=== PATIENT | female | born 1990 | race Caucasian/White ===

== ENCOUNTER → 2016-12-25 | Outpatient (CLI) | payer MEDICAID ==
[~2016-12-25] MED LIST: AMOX500C PO; CYTO200T PO; FE FCAP PO; IBUP-232 PO; NITR1CAP36 PO; PREN1CAP33 PO
== END ==
LOC: HPND 10:38
PROVIDERS: ATTEND Obstetrics & Gynecology
DX: O26.841 Uterine size-date discrepancy, first trimester (principal); Z3A.12 12 weeks gestation of pregnancy
CPT/HCPCS: 76801

== ENCOUNTER → 2017-02-12 | Outpatient (CLI) | payer MEDICAID ==
[~2017-02-12] MED LIST changes: -AMOX500C PO; -CYTO200T PO; -IBUP-232 PO
== END ==
LOC: HPND 11:01
PROVIDERS: ATTEND Obstetrics & Gynecology
DX: Z36 Encounter for antenatal screening of mother (principal); Z3A.19 19 weeks gestation of pregnancy
CPT/HCPCS: 76805

== ENCOUNTER → 2017-03-20 | Outpatient (CLI) | payer MEDICAID | LOC: HPND 09:21 | PROVIDERS: ATTEND Obstetrics & Gynecology | DX: O35.1XX0 Maternal care for (suspected) chromosomal abnormality in fetus, not applicable or unspecified (principal) | CPT/HCPCS: 76811 ==

== ENCOUNTER 2017-06-15 10:12 | Emergency (ER) | payer MEDICAID ==
[~2017-06-15 10:12] MED LIST changes: -FE FCAP PO; +FERRTAB2 PO; -NITR1CAP36 PO
--- NOTE | 2017-06-15 10:52 | PD ---
HPI Chief Complaint Possibly leaking fluid and breech presentation Date Seen: Jun 15, 2017 Time Seen: 10:40 Travel History International Travel<30 Days: No Contact w/Intl Traveler<30Days: No Known Affected Area: No History of Present Illness HPI Patient is 27-year-old white female at 37 weeks followed by [facility] who presents referral from that clinic. She was checked this morning and noted to be breech and that she might be leaking fluid. Denies bleeding or pain patient feels fine baby is active she has no complaints or problems. The heart rate tracing is reactive and she is having occasional contraction that she does not feel well. Patient's amnio sure is negative today Weeks Gestation: 37 Para: 0 : 2 Miscarriage: 1 History Obstetric History Obstetric History One miscarriage last year Social History Alcohol Use: No Tobacco Use: No Substance Abuse: No Allergies-Medications (Allergen,Severity, Reaction): Coded Allergies: No Known Allergies (Verified , 05/21/17) Home Meds Active Scripts Multi-Vit/Iron-Folic [id number] C (Ferralet) 90-1-0.012-120 mg Tab, 1 TAB PO DAILY, #30 BOTTLE 11 Refills Prov:Maura Ardon 04/16/17 Vit W/ Fe Polysacch C (Vitafol Fe+ 90-1-200 & 50 mg) 1 Cap Cap, 1 TAB PO DAILY, #30 BOTTLE 11 Refills Prov:Maura Ardon 12/25/16 Review of Systems General / Constitutional: No: Fever, Weight Gain, Chills, Other Eyes: No: Diploplia, Blurred Vision, Visual changes, Pain, Photophobia HENT: No: Headaches, Vertigo, Lightheadedness Cardiovascular: No: Irregular Rhythm, Chest Pain or Discomfort, Palpitations, Tachycardia, Syncope, Varicosities, Edema, Cyanosis Respiratory: No: Cough, Short of Breath, Other Gastrointestinal: No: Nausea, Vomiting, Diarrhea Genitourinary: No: Decreased Urinary Output, Oliguria Musculoskeletal: No: Limited ROM, Weakness, Cramping, Edema, Pain Skin: No Rash, No Itching, No Dryness, No Lumps, No Change in Pigmentation, No Change in Nails, No Alopecia, No Lesions Neurologic: No: Weakness, Dizziness, Syncope, Focal Abnormalities, Coordination Problem, Headache, Slurred Speech, Seizures Psychiatric: No: Depression, Suicidal Ideations, Homicidal Ideation Endocrine: No: Heat Intolerance, Cold Intolerance, Polydipsia, Polyuria, Other Physical Exam Narrative GENERAL: Well-nourished, well-developed patient. SKIN: Warm and dry. HEAD: Normocephalic and atraumatic. EYES: No scleral icterus. No injection or drainage. ENT: No nasal drainage noted. Mucous membranes pink. Airway patent. NECK: Supple, trachea midline. No JVD. CARDIOVASCULAR: Regular rate and rhythm without murmurs, gallops, or rubs. RESPIRATORY: Breath sounds equal bilaterally. No accessory muscle use. BREASTS: Bilateral exam showed no masses , no retractions, no nipple discharge. ABDOMEN/GI: Abdomen soft, non-tender, bowel sounds present, no rebound, no guarding Gravid to [-37] weeks size Fundal Height: [37-] GENITOURINARY: External Genitalia: intact and normal in appearance BUS glands: [-] Cervix: Post-] Dilatation: [2-] Effacement: [-60] Station: [-3] Presentation: [Complete breech confirmed by ultrasound-] Membranes: [intact b] Uterine Contractions: [Occasional] FHT's: Category: [-1] Baseline: [-133] Reactive: [yes-] Variability: [-mod] Decels: [none-] EXTREMITIES: No cyanosis or edema. BACK: Nontender without obvious deformity. No CVA tenderness. NEUROLOGICAL: Awake and alert. Motor and sensory grossly within normal limits. Five out of 5 muscle strength in all muscle groups. Normal speech. Data Data Orders Orders Vital Signs (Adult) .ON ADMISSION (06/15/17 10:22) ^ Labor Status (06/15/17 10:22) ^ Non Stress Test (06/15/17 10:22) ^ Hydration (06/15/17 10:22) Pamg-1 Test .ONCE (06/15/17 10:22) Ob (2e) Additional Admit Info (06/15/17 10:30) Labs Bedside ultrasound confirms complete breech presentation anatomy scan borderline low fluid normal cardiac activity Amnio sure negative MDM Interpretation(s) 27-year-old white female A1 who is referred over from [facility] for evaluation of possible leakage of fluid and breech presentation. Amnio sure is negative today. Patient is to complete breech presentation with the cervical exam of 2 cm / 60% -3 /breech Patient is not in labor at this time a she's having a few contractions the heart rate tracing is reactive and she is intact membranes. Land schedule patient for section for breech presentation on June 28 which we 39 weeks prior to that if she goes to the labor and still breech that she may well need a at that time Plan Plan to place this patient was scheduled for a primary section on June 28 for breech presentation Diagnosis Diagnosis: Primary Impression: Breech presentation Additional Impression: No leakage of amniotic fluid into vagina Disposition: 01 DISCHARGE HOME Condition: Stable Júnior Kenney II, MD Jun 15, 2017 10:52
[2017-06-18] MEDS ORDERED: AMOX500C PO (16:05)
== END 2017-06-15 11:32 | disposition home or self-care (01) ==
LOC: HOBED 10:12
DX: O32.1XX0 Maternal care for breech presentation, not applicable or unspecified (principal); Z3A.37 37 weeks gestation of pregnancy
CPT/HCPCS: 59025; 76815

== ENCOUNTER → 2017-06-19 | Outpatient (CLI) | payer MEDICAID ==
[~2017-06-19] MED LIST changes: +AMOX500C PO; +FERR325C PO; +IBUP-232 PO; +OXYC1TAB63 PO; +SENN1TAB PO
== END ==
LOC: HPND 14:46
PROVIDERS: ATTEND Obstetrics & Gynecology
DX: O32.1XX0 Maternal care for breech presentation, not applicable or unspecified (principal); O41.03X0 Oligohydramnios, third trimester, not applicable or unspecified; Z3A.37 37 weeks gestation of pregnancy
CPT/HCPCS: 76816

== ENCOUNTER 2017-06-27 11:09 | Inpatient (IN) | payer MEDICAID ==
[2017-06-27] VITALS (11 sets, daily range): BP systolic 98–123; BP diastolic 56–80; PULSE 71–101; RESP 16–25; TEMP 98.1–99.4; O2SAT 99–100
[~2017-06-27] VITALS: Ht 165.1 cm; Wt 30.5 kg
[~2017-06-27 11:09] MED LIST changes: -FERR325C PO; -IBUP-232 PO; -OXYC1TAB63 PO; -SENN1TAB PO
[2017-06-27] MEDS ORDERED: PROPOFOL 200 MG/20 ML AMP IV ONE (12:00)
[2017-06-27] MEDS ORDERED: ONDANSETRON HCL 4 MG/2 ML VIAL IV PUSH ONE (12:00)
[2017-06-27] MEDS ORDERED: MORPHINE SULFATE PF 5 MG/10 ML VIAL ONE (12:00)
[2017-06-27] MEDS ORDERED: LACTATED RINGER'S 1000 ML INJ 2,000 ML IV ONE (12:00)
[2017-06-27] MEDS ORDERED: OXYTOCIN 10 UNIT/ML AMP IV ONE (12:00)
[2017-06-27] MEDS ORDERED: PHENYLEPH/NS 1000 MCG/10 ML SYR IV ONE (12:00)
--- NOTE | 2017-06-27 12:05 | PD ---
HPI Chief Complaint contractions Date Seen: Jun 27, 2017 Time Seen: 12:07 (Erich Dailey MD, R2) Travel History International Travel<30 Days: No Contact w/Intl Traveler<30Days: No (Erich Dailey MD, R2) History of Present Illness HPI Patient is a 27-year-old female at 38/6 weeks who presents for contractions. She states that she started having contractions earlier this morning and they were spaced about 10 minutes apart, painful. States they have increased in frequency up to 3-4 minutes. Denies any loss of fluids, vaginal bleeding. Endorses movement. She states she's had low fluid in the past during this and baby is in breech position, with scheduled tomorrow morning. Otherwise, denies any complaints/concerns. No headaches, changes in vision, dysuria, leg pain/swelling. She sees [facility]. Weeks Gestation: 38 Para: 0 : 2 Miscarriage: 1 (Erich Dailey MD, R2) History Past Medical History Medical History: Denies Significant Hx (Erich Dailey MD, R2) Obstetric History Obstetric History 1st -miscarriage (Erich Dailey MD, R2) Past Surgical History Surgical History: No Previous Surgery (Erich Dailey MD, R2) Family History Family History: Negative (Erich Dailey MD, R2) Social History Alcohol Use: No Tobacco Use: No Substance Abuse: No (Erich Dailey MD, R2) Allergies-Medications (Allergen,Severity, Reaction): Coded Allergies: No Known Allergies (Verified , 06/22/17) Home Meds Active Scripts Amoxicillin (Amoxicillin) 500 Mg Cap, 500 MG PO TID for Infection, #21 CAP 0 Refills Prov:Maura Ardon 06/18/17 Multi-Vit/Iron-Folic Alrx-E41-Sah C (Ferralet) 90-1-0.012-120 mg Tab, 1 TAB PO DAILY, #30 BOTTLE 11 Refills Prov:Maura Ardon 04/16/17 Vit W/ Fe Polysacch C (Vitafol Fe+ 90-1-200 & 50 mg) 1 Cap Cap, 1 TAB PO DAILY, #30 BOTTLE 11 Refills Prov:Maura ArdonRonan DUARTE 12/25/16 Review of Systems General / Constitutional: Weight Gain, No: Fever, Weight Loss, Chills Eyes: No: Diploplia, Blurred Vision, Visual changes HENT: No: Headaches, Lightheadedness Cardiovascular: No: Irregular Rhythm, Chest Pain or Discomfort, Palpitations Respiratory: No: Cough, Short of Breath Gastrointestinal: No: Nausea, Vomiting, Diarrhea Genitourinary: Pelvic Pain, No: Urgency, Frequency, Dysuria, Discharge, Vaginal Bleeding Musculoskeletal: No: Limited ROM, Weakness Skin: No Rash, No Itching, No Dryness, No Lumps Neurologic: No: Weakness, Dizziness, Syncope Psychiatric: No: Anxiety, Depression (Erich Dailey MD, R2) Physical Exam Narrative GENERAL: Well-nourished, well-developed patient. SKIN: Warm and dry. HEAD: Normocephalic and atraumatic. EYES: No scleral icterus. No injection or drainage. ENT: No nasal drainage noted. Mucous membranes pink. Airway patent. NECK: Supple, trachea midline. No JVD. CARDIOVASCULAR: Regular rate and rhythm without murmurs, gallops, or rubs. RESPIRATORY: Breath sounds equal bilaterally. No accessory muscle use. ABDOMEN/GI: Abdomen soft, non-tender, bowel sounds present, no rebound, no guarding Gravid to 38 weeks size GENITOURINARY: External Genitalia: intact and normal in appearance Cervix: [-] Dilatation: [-] Effacement: [-] Station: [-] Presentation: [-] Membranes: [intact or ruptured] Uterine Contractions: none FHT's: Category: 1 Baseline: 140 Reactive: yes Variability: moderate Decels: none EXTREMITIES: No cyanosis or edema. BACK: Nontender without obvious deformity. No CVA tenderness. NEUROLOGICAL: Awake and alert. Motor and sensory grossly within normal limits. Five out of 5 muscle strength in all muscle groups. Normal speech. (Erich Dailey MD, R2) Narrative SVE: 90/0 (prior exam 2cm last week) foot palpated on exam per RN (Clementine Richard MD) Data Data Vital Signs Reviewed: Yes Orders Orders Vital Signs (Adult) .ON ADMISSION (06/27/17 12:04) ^ Labor Status (06/27/17 12:04) ^ Hydration (06/27/17 12:04) Group B Strep: Positive (Erich Dailey MD, R2) MDM Medical Record Reviewed: Yes Interpretation(s) 27 y/o at 38/6 weeks presents for contractions. Category 1 FHT with no contractions Vitals stable IUP at 38 weeks with breech presentation Pt scheduled for tomorrow due to breech Cervical check -Hydration, may be dehydrated -FHT to monitor for contractions (Erich Dailey MD, R2) Attending Attestation 38w6d Footling breech presentation Irregular UC, now in early labor with cervical change Proceed with primary for malpresentation (Clementine Richard MD) Diagnosis Diagnosis: Primary Impression: Breech presentation Qualified Codes: O32.1XX0 - Maternal care for breech presentation, not applicable or unspecified Erich Dailey MD, R2 Jun 27, 2017 12:05 Clementine Richard MD Jun 27, 2017 13:31
[2017-06-27] MEDS ORDERED: LACTATED RINGER'S 1000 ML INJ 1,000 ML IV SCH ×2 (12:46→13:51)
[2017-06-27] MEDS ORDERED: LACTATED RINGER'S 1000 ML INJ 1,000 ML IV ONE (13:21)
[2017-06-27 13:52] LABS: AUTOMATED NEUTROPHIL # 14.6 TH/MM3 (1.8-7.7); BASOPHIL # 0.1 TH/MM3 (0-0.2); BASOPHIL % 0.4 % (0.0-2.0); EOSINOPHIL % 0.2 % (0.0-4.0); HEMATOCRIT 27.4 % (35.0-46.0); HEMO FLAGS DIFF FINAL; LYMPH % 9.1 % (9.0-44.0); LYMPHOCYTE # 1.6 TH/MM3 (1.0-4.8); MEAN CELL VOLUME 69.1 FL (80.0-100.0); MEAN CORPUSCULAR HEMOGLOBIN 20.9 PG (27.0-34.0); MEAN CORPUSCULAR HGB CONC 30.3 % (32.0-36.0); MONO % 6.3 % (0.0-8.0); PLATELET COUNT 263 TH/MM3 (150-450); RED BLOOD COUNT 3.96 MIL/MM3 (4.00-5.30); RED CELL DISTRIBUTION WIDTH 18.8 % (11.6-17.2); WHITE BLOOD COUNT 17.3 TH/MM3 (4.0-11.0)
[2017-06-27 13:59] LABS: BLOOD, URINE SMALL (NEG); GLUCOSE,URINE NEG (NEG); GRANULAR CAST, URINE 1 /lpf; KETONE, URINE 80 mg/dL (NEG); MUCUS URINE FEW /lpf (OCC); NITRITE,URINE NEG (NEG); SQUAMOUS EPITHELIAL CELL URINE 3 /hpf (0-5); TRANSITIONAL EPI CELLS, URINE <1 /hpf; URINE COLOR YELLOW (YELLW/STRAW)
[2017-06-27 14:00] LABS: COMMENT (UR) CULT NOT INDICATED; CULTURE IF INDICATED CULT NOT INDICATED
[2017-06-27] MEDS ORDERED: EPIDURAL-NO SYSTEMIC NARCOTICS PRN (14:10)
[2017-06-27] MEDS ORDERED: EPIDURAL-DIPHENHYDRAMINE HCL 50 MG/ML VIAL IV PUSH PRN (14:10)
[2017-06-27] MEDS ORDERED: EPIDURAL-DO NOT ADMINISTER ANTICOAGULANTS PRN (14:10)
[2017-06-27] MEDS ORDERED: EPIDURAL-DIPHENHYDRAMINE HCL 50 MG CAP PO PRN (14:10)
[2017-06-27] MEDS ORDERED: EPIDURAL-NALOXONE HCL 0.4 MG/ML AMP IV PUSH PRN (14:10)
[2017-06-27] MEDS ORDERED: OXYTOCIN 30 UNITS-500ML PREMIX 500 ML IV ONE (15:00)
[2017-06-27] MEDS ORDERED: CITRIC ACID-SODIUM CITRATE LIQ 30 ML UDC PO SCH (15:00)
--- NOTE | 2017-06-27 15:01 | PD.OP ---
Operative Report Date of Surgery: Jun 27, 2017 Preoperative Diagnosis: 38 weeks Footling breech Active labor Postoperative Diagnosis: Same as above Procedure: LTUI Surgeon: Clementine Richard Skein Yarn Dyer(s): [employer] Operation and Findings: OPERATIVE REPORT PROCEDURE(S) PERFORMED: Primaruy Low Transverse Uterine Incision SURGEON: Clementine Richard MD PHARMACIST IN CHARGE OWNER(S): [employer] ANESTHESIA: Spinal SPECIMEN(S) TO LAB: Cord blood EBL: 500mL UOP: 200ml clear IVF: 1200ml Crystalloid DRAINS: Nunez DRESSINGS: Mepilex dressing COMPLICATIONS: None apparent INDICATIONS: 38w6d weeks with footling breech presentation in active labor. OPERATIVE FINDINGS: Normal uterus, ovaries, tubes. Viable male, 3300g, 9/9 DESCRIPTION: The risks, benefits, and indications of the procedure were reviewed with the patient and informed consent was obtained. The patient was taken to the operating room where spinal anesthesia was found to be adequate. She was prepared and draped in the normal sterile fashion in the dorsal supine position with a leftward tilt. A Pfannenstiel skin incision was made on the skin. The incision was then carried through the underlying layer of fascia with the Bovie. The fascia was incised in the midline and the incision extended laterally with the Ling scissors. The superior aspect of the fascial incision was grasped with the Barbara clamps, elevated, and the underlying rectus muscles dissected off bluntly and using the Bovie. In a similar fashion the inferior aspect of this incision was grasped and the rectus muscles dissected off of the fascia. The rectus muscles were in the midline and the peritoneum entered bluntly over a filmy area. The bladder blade was placed and a bladder flap made with the Metzenbaum scissors. A bladder flap created digitally with replacement of the bladder blade. The lower uterine segment was incised in a transverse fashion with the scalpel. The uterine incision was extended laterally digitally. Clear fluid was noted on amniotomy. The infants feet were grasped and brought through the incision. The breech and body were delivered and wraped in a towel. The shoulders were delivered without difficulty followed by the head. The cord was double clamped and cut. The was handed to the waiting pediatric team. Cord blood was obtained. The placenta was then removed manually, was intact and grossly normal. The uterus was exteriorized and cleared of all clots and debris. The uterine incision was closed with a running, locking layer of 0- Chromic. The uterus was returned to the abdomen, and inspected again and found to be hemostatic. The gutters were irrigated and cleared of all clots and debris. The peritoneal fascia and muscle bellies were hemostatic. The fascia was re- approximated from the left to the right corner in a running fashion with 0- Vicryl. The subcutaneous space was irrigated and hemostatic. The subcutaneous space was closed with 3-0 Vicryl. The skin approximated with 3-0 Monocryl. The patient tolerated the procedure well. Sponge, lap and needle counts were correct x 2. Ancef IVPB was given prior to the procedure. Pitocin 30 units in her regular IV fluids was given after placenta delivery. The patient was taken to the recovery unit in good condition. There were no operative complications. Clementine Richard MD Department of Obstetrics and Gynecology Clementine Richard MD Jun 27, 2017 3:01 pm
--- NOTE | 2017-06-27 15:01 | HHI.HP ---
History & Physical H&P Patient Name: Augusta Freeman Unit Number: [id number] Date of : 1990 Patient Status: Admitted Inpatient Attending Doctor: Clementine Richard MD HPI HPI Chief Complaint contractions Date Seen: Jun 27, 2017 Time Seen: 12:07 (Erich Dailey MD, R2) Travel History International Travel<30 Days: No Contact w/Intl Traveler<30Days: No (Erich Dailey MD, R2) History of Present Illness HPI Patient is a 27-year-old female at 38/6 weeks who presents for contractions. She states that she started having contractions earlier this morning and they were spaced about 10 minutes apart, painful. States they have increased in frequency up to 3-4 minutes. Denies any loss of fluids, vaginal bleeding. Endorses movement. She states she's had low fluid in the past during this and baby is in breech position, with scheduled tomorrow morning. Otherwise, denies any complaints/concerns. No headaches, changes in vision, dysuria, leg pain/swelling. She sees [facility] care. Weeks Gestation: 38 Para: 0 : 2 Miscarriage: 1 (Erich Dailey MD, R2) History (Limited) History Past Medical History Medical History: Denies Significant Hx (Erich Dailey MD, R2) Obstetric History Obstetric History 1st -miscarriage (Erich Dailey MD, R2) Past Surgical History Surgical History: No Previous Surgery (Erich Dailey MD, R2) Family History Family History: Negative (Erich Dailey MD, R2) Social History Alcohol Use: No Tobacco Use: No Substance Abuse: No (Erich Dailey MD, R2) Allergies-Medications Allergies-Medications (Allergen,Severity, Reaction): Coded Allergies: No Known Allergies (Verified , 06/22/17) Home Meds Active Scripts Amoxicillin (Amoxicillin) 500 Mg Cap, 500 MG PO TID for Infection, #21 CAP 0 Refills Prov:Maura Ardon 06/18/17 Multi-Vit/Iron-Folic Msre-T95-Uoy C (Ferralet) 90-1-0.012-120 mg Tab, 1 TAB PO DAILY, #30 BOTTLE 11 Refills Prov:Maura Ardon [facility] 04/16/17 Vit W/ Fe Polysacch C (Vitafol Fe+ 90-1-200 & 50 mg) 1 Cap Cap, 1 TAB PO DAILY, #30 BOTTLE 11 Refills Prov:Maura Ardon CLINICAL PROGRAM CONSULTANT 12/25/16 ROS Review of Systems General / Constitutional: Weight Gain, No: Fever, Weight Loss, Chills Eyes: No: Diploplia, Blurred Vision, Visual changes HENT: No: Headaches, Lightheadedness Cardiovascular: No: Irregular Rhythm, Chest Pain or Discomfort, Palpitations Respiratory: No: Cough, Short of Breath Gastrointestinal: No: Nausea, Vomiting, Diarrhea Genitourinary: Pelvic Pain, No: Urgency, Frequency, Dysuria, Discharge, Vaginal Bleeding Musculoskeletal: No: Limited ROM, Weakness Skin: No Rash, No Itching, No Dryness, No Lumps Neurologic: No: Weakness, Dizziness, Syncope Psychiatric: No: Anxiety, Depression (Erich Dailey MD, R2) Physical Exam Physical Exam Narrative GENERAL: Well-nourished, well-developed patient. SKIN: Warm and dry. HEAD: Normocephalic and atraumatic. EYES: No scleral icterus. No injection or drainage. ENT: No nasal drainage noted. Mucous membranes pink. Airway patent. NECK: Supple, trachea midline. No JVD. CARDIOVASCULAR: Regular rate and rhythm without murmurs, gallops, or rubs. RESPIRATORY: Breath sounds equal bilaterally. No accessory muscle use. ABDOMEN/GI: Abdomen soft, non-tender, bowel sounds present, no rebound, no guarding Gravid to 38 weeks size Uterine Contractions: irregular, occasional FHT's: Category: 1 Baseline: 140 Reactive: yes Variability: moderate Decels: none EXTREMITIES: No cyanosis or edema. BACK: Nontender without obvious deformity. No CVA tenderness. NEUROLOGICAL: Awake and alert. Motor and sensory grossly within normal limits. Five out of 5 muscle strength in all muscle groups. Normal speech. (Erich Dailey MD, R2) Narrative SVE: / (prior exam 2cm last week) foot palpated on exam per RN (Clementine Richard MD) Group B Strep: Positive (Erich Dailey MD, R2) MDM MDM Medical Record Reviewed: Yes Interpretation(s) 27 y/o at 38/6 weeks presents for contractions. Category 1 FHT Vitals stable (Erich Dailey MD, R2) Attending Attestation 38w6d Footling breech presentation Irregular UC, now in early labor with cervical change Proceed with primary for malpresentation (Clementine Richard MD) Diagnosis Diagnosis: Primary Impression: Breech presentation Qualified Codes: O32.1XX0 - Maternal care for breech presentation, not applicable or unspecified Clementine Richard MD Jun 27, 2017 15:01
[2017-06-27] MEDS ORDERED: OXYTOCIN 30 UNITS-500ML PREMIX 500 ML ONE (15:26)
[2017-06-27] MEDS ORDERED: KETOROLAC TROMETHAMINE 30 MG/ML (IVP) VIAL ONE (15:26)
[2017-06-27] MEDS ORDERED: ONDANSETRON HCL 4 MG/2 ML VIAL IV PUSH PRN (16:00)
[2017-06-27] MEDS: KETOROLAC TROMETHAMINE 30 MG/ML (IVP) VIAL IV PUSH SCH (18:00)
[2017-06-27] MEDS: LACTATED RINGER'S 1000 ML INJ 1,000 ML IV SCH (21:00)
[2017-06-27] MEDS: SODIUM CHLORIDE 0.9% FLUSH 10 ML FLUSH IV FLUSH SCH (21:00)
[2017-06-28] VITALS (9 sets, daily range): BP systolic 101–115; BP diastolic 57–72; PULSE 65–88; RESP 16–18; TEMP 97.5–99.4
[2017-06-28] MEDS: SODIUM CHLORIDE 0.9% FLUSH 10 ML FLUSH IV FLUSH PRN ×2 (00:09→05:37)
[2017-06-28] MEDS: KETOROLAC TROMETHAMINE 30 MG/ML (IVP) VIAL IV PUSH SCH ×4 (00:09→18:10)
[2017-06-28] MEDS ORDERED: OXYTOCIN 30 UNITS-500ML PREMIX 500 ML IV PRN (01:00)
[2017-06-28] MEDS: LACTATED RINGER'S 1000 ML INJ 1,000 ML IV SCH (05:57)
--- NOTE | 2017-06-28 09:00 | HHI.OB ---
Subjective Post Operative Day: 1 Remarks Postoperative day number 1. AFVSS overnight. Pain controlled with medications. Incision not draining. Decreased lochia. Denies dysuria. No breast tenderness. She is feeding the baby via breast. Appetite good. No nausea or vomiting. Endorses flatus. No bowel movement. Ambulating well. Denies calf pain, shortness of breath, or cough. Otherwise, she is doing well this morning and has no other complaints. (Erich Dailey MD, R2) Objective Vitals/I&O Vital Signs Date Time Temp Pulse Resp B/P (MAP) Pulse Ox O2 Delivery O2 Flow Rate FiO2 06/28/17 05:36 98.6 77 18 115/66 (82) 06/28/17 04:00 16 06/28/17 01:10 99.4 18 06/28/17 01:10 65 102/57 (72) 06/27/17 23:30 16 06/27/17 21:00 123/72 (89) 06/27/17 21:00 99.4 78 18 06/27/17 16:20 98.3 78 16 119/70 (86) 06/27/17 15:45 75 20 103/60 (74) 100 06/27/17 15:45 98.1 06/27/17 15:29 76 20 98/56 (70) 100 06/27/17 15:16 71 22 107/59 (75) 99 06/27/17 15:04 101 25 119/80 (93) 99 06/27/17 15:01 98.1 06/27/17 13:44 84 108/61 (77) 06/27/17 13:35 86 100 06/27/17 13:30 85 100 (Erich Dailey MD, R2) Result Diagram: 06/27/17 1240 Objective Remarks GENERAL: Well-nourished, well-developed patient. CARDIOVASCULAR: Regular rate and rhythm without murmurs, gallops, or rubs. RESPIRATORY: Breath sounds equal bilaterally. No accessory muscle use. ABDOMEN/GI: Abdomen soft, non-tender, bowel sounds present. Incision: Clean, dry and intact. Fundus: Firm, non-tender at umbilicus. GENITOURINARY: Light to moderate bleeding. EXTREMITIES: No cyanosis or edema, non-tender, without signs of DVT. Medications and IVs Current Medications Medications (Trade) Dose Ordered Sig/Filippo Route Start Time Stop Time Status Last Admin Lactated Ringer's 1,000 ml @ 100 mls/hr Q10H IV 06/27/17 19:57 06/28/17 15:56 06/27/17 21:00 Oxytocin 500 ml @ 100 mls/hr UNSCH X1 PRN IV 06/28/17 01:00 06/29/17 00:59 (NS Flush) 2 ml BID IV FLUSH 06/27/17 21:00 (NS Flush) 2 ml UNSCH PRN IV FLUSH 06/27/17 15:00 06/28/17 05:37 (Mylicon Chew) 80 mg QID PRN PO 06/27/17 18:00 (Motrin) 600 mg Q6H PRN PO 06/28/17 21:00 (Percocet 5-325 Mg) 1 tab Q4H PRN PO 06/27/17 15:00 (Percocet 5-325 Mg) 2 tab Q4H PRN PO 06/27/17 15:00 (Miri-Colace) 2 tab Q12HR PRN PO 06/27/17 21:00 (M-M-R Ii Inj) 0.5 ml ONCE ONCE SQ 06/28/17 16:00 06/28/17 16:01 (Boostrix Inj) 0.5 ml ONCE ONCE IM 06/28/17 16:00 06/28/17 16:01 (Zofran Inj) 4 mg Q6H PRN IV PUSH 06/27/17 16:00 (Toradol Inj) 30 mg Q6HR IV PUSH 06/27/17 18:00 07/01/17 17:59 06/28/17 05:36 Miscellaneous Information NO SYSTEMIC NARCOTICS TO BE GIVEN FO... UNSCH PRN .XX 06/27/17 14:10 06/28/17 14:09 (Narcan Inj) 0.4 mg UNSCH PRN IV PUSH 06/27/17 14:10 06/28/17 14:09 (Benadryl Inj) 25 mg Q6H PRN IV PUSH 06/27/17 14:10 06/28/17 14:09 (Benadryl) 50 mg Q6H PRN PO 06/27/17 14:10 06/28/17 14:09 06/28/17 00:08 Miscellaneous Information ALL NURSING DEPARTMENTS UNSCH PRN .XX 06/27/17 14:10 06/28/17 14:09 (Erich Dailey MD, R2) Assessment/Plan Assessment and Plan 27y/o female who is POD# 1 s/p CXN due to breech presentation -Continue routine care. -Percocet and Motrin PRN pain. -Encouraged OOB. Advised pelvic rest for 6 wks. Will need a f/u appt. in 1 wk for incision check. -Re: ctrl, she would is undecided -D/c in 1-2 more days. dw OB attending (Erich Dailey MD, R2) Attending Attestation POD #1 s/p c/s doing well voiding trial this am BF well patient seen and examined. d/w Dr. Dailey and Dr. Weeks (Clementine Richard MD) Erich Dailey MD, R2 Jun 28, 2017 09:00 Clementine Richard MD Jun 28, 2017 09:19
[2017-06-28 10:11] LABS: AUTOMATED NEUTROPHIL # 12.4 TH/MM3 (1.8-7.7); BASOPHIL # 0.1 TH/MM3 (0-0.2); BASOPHIL % 0.3 % (0.0-2.0); EOSINOPHIL # 0.1 TH/MM3 (0-0.4); EOSINOPHIL % 0.3 % (0.0-4.0); LYMPH % 9.5 % (9.0-44.0); LYMPHOCYTE # 1.5 TH/MM3 (1.0-4.8); MEAN CELL VOLUME 68.7 FL (80.0-100.0); MEAN CORPUSCULAR HEMOGLOBIN 21.4 PG (27.0-34.0); MEAN CORPUSCULAR HGB CONC 31.1 % (32.0-36.0); MONO % 9.7 % (0.0-8.0); NEUT % 80.2 % (16.0-70.0); PLATELET COUNT 194 TH/MM3 (150-450); RED BLOOD COUNT 3.13 MIL/MM3 (4.00-5.30); RED CELL DISTRIBUTION WIDTH 18.9 % (11.6-17.2); WHITE BLOOD COUNT 15.5 TH/MM3 (4.0-11.0)
[2017-06-28 10:18] LABS: HEMO FLAGS DIFF FINAL
[2017-06-28 10:19] LABS: HEMATOCRIT 21.5 % (35.0-46.0)
[2017-06-28] MEDS ORDERED: SODIUM CHLOR 0.9% 250 ML INJ 250 ML IV ONE (11:00)
[2017-06-28] MEDS: oxyCODONE/ACETAMINOPHEN 5 MG/325 MG TAB PO PRN ×4 (12:15→18:10)
[2017-06-28] MEDS: SIMETHICONE 80 MG CHEWABLE TAB PO PRN (12:25)
[2017-06-28] MEDS ORDERED: MEASLES, MUMPS, RUBELLA VACCINE 0.5 ML VIAL SQ ONE (16:00)
[2017-06-28] MEDS ORDERED: DIPHTH/TETANUS/ACEL PERTUSSIS (BOOSTER) 0.5 ML VIAL/PFS IM ONE (16:00)
[2017-06-28] MEDS: SODIUM CHLORIDE 0.9% FLUSH 10 ML FLUSH IV FLUSH SCH (20:52)
[2017-06-29 01:20] LABS: HEMATOCRIT 24.5 % (35.0-46.0); REVIEW FLAG FINAL
[2017-06-29] MEDS: DOCUSATE SODIUM 50 MG/SENNA 8.6 MG TAB PO PRN ×2 (03:13→11:18)
[2017-06-29] MEDS: SIMETHICONE 80 MG CHEWABLE TAB PO PRN ×3 (03:13→17:04)
[2017-06-29] MEDS: IBUPROFEN 600 MG TAB PO PRN ×3 (03:13→17:04)
[2017-06-29] MEDS: oxyCODONE/ACETAMINOPHEN 5 MG/325 MG TAB PO PRN ×3 (03:14→17:05)
[2017-06-29] MEDS: KETOROLAC TROMETHAMINE 30 MG/ML (IVP) VIAL IV PUSH SCH ×2 (06:00)
[2017-06-29 07:44] VITALS: BP 117/71; PULSE 68; RESP 16; TEMP 98.8
--- NOTE | 2017-06-29 09:32 | HHI.OB ---
Subjective Post Operative Day: 2 Remarks Postoperative day number 2. AFVSS overnight. Pain improving. Incision not draining. Decreased lochia. Denies dysuria. No breast tenderness. She is feeding the baby via breast. Appetite good. No nausea or vomiting. Endorses flatus. No bowel movement. Ambulating well. Denies calf pain, shortness of breath, or cough. Denies any lightheadedness/dizziness. States she feels improved today after the blood transfusions. Otherwise, she is doing well this morning and has no other complaints. Objective Vitals/I&O Vital Signs Date Time Temp Pulse Resp B/P (MAP) Pulse Ox O2 Delivery O2 Flow Rate FiO2 06/29/17 07:44 98.8 68 16 117/71 (86) 06/28/17 21:40 101/69 (80) 06/28/17 21:40 98.7 75 18 06/28/17 17:05 98.6 16 06/28/17 17:05 88 107/63 (78) 06/28/17 16:50 98.5 80 16 106/72 (83) 06/28/17 16:50 98.5 80 16 106/72 06/28/17 13:30 98.0 06/28/17 13:30 79 101/69 (80) 06/28/17 13:21 97.5 80 16 102/64 (77) Intake & Output 06/29/17 06/29/17 06:59 18:59 Intake Total 410 ml Balance 410 ml Packed Cells 400 ml Blood Product IV Normal Saline Flush 10 ml Result Diagram: 06/29/17 0009 Objective Remarks GENERAL: Well-nourished, well-developed patient. CARDIOVASCULAR: Regular rate and rhythm without murmurs, gallops, or rubs. RESPIRATORY: Breath sounds equal bilaterally. No accessory muscle use. ABDOMEN/GI: Abdomen soft, non-tender, bowel sounds present. Incision: Clean, dry and intact. Fundus: Firm, non-tender at umbilicus. GENITOURINARY: Light to moderate bleeding. EXTREMITIES: No cyanosis or edema, non-tender, without signs of DVT. Medications and IVs Current Medications Medications (Trade) Dose Ordered Sig/Filippo Route Start Time Stop Time Status Last Admin (NS Flush) 2 ml BID IV FLUSH 06/27/17 21:00 (NS Flush) 2 ml UNSCH PRN IV FLUSH 06/27/17 15:00 06/28/17 05:37 (Mylicon Chew) 80 mg QID PRN PO 06/27/17 18:00 06/29/17 03:13 (Motrin) 600 mg Q6H PRN PO 06/28/17 21:00 06/29/17 03:13 (Percocet 5-325 Mg) 1 tab Q4H PRN PO 06/27/17 15:00 06/29/17 03:14 (Percocet 5-325 Mg) 2 tab Q4H PRN PO 06/27/17 15:00 (Miri-Colace) 2 tab Q12HR PRN PO 06/27/17 21:00 06/29/17 03:13 (Zofran Inj) 4 mg Q6H PRN IV PUSH 06/27/17 16:00 (Toradol Inj) 30 mg Q6HR IV PUSH 06/27/17 18:00 07/01/17 17:59 06/28/17 18:10 Assessment/Plan Assessment and Plan 27y/o female who is POD# 1 s/p CXN due to breech presentation -Continue routine care. -Percocet and Motrin PRN pain. -Encouraged OOB. Advised pelvic rest for 6 wks. Will need a f/u appt. in 1 wk for incision check. -Re: ctrl, she would is undecided -D/c tomorrow Anemia -S/p 2 units pRBC -Hb improved to 7.9 yesterday s/p transfusion -Asymptomatic -Continue to monitor dw OB attending Erich Dailey MD, R2 Jun 29, 2017 09:32
--- NOTE | 2017-06-29 14:50 | HHI.DCPOC ---
Discharge Care Plan Diagnosis: (1) (2) care following delivery Report Symptoms to Your Doctor -Temperature above 100.5 degrees -Redness, of incision or excessive or foul smelling drainage -Unusual pain or calf pain -Increased vaginal bleeding -Painful or difficulty urinating -Feelings of extreme sadness or anxiety after 2 weeks Goals to Promote Your Health * To prevent worsening of your condition and complications * To maintain your health at the optimal level Directions to Meet Your Goals Take your medications as prescribed Follow your dietary instruction Follow activity as directed Ensure plenty of rest for recovery Drink fluids for hydration Keep your appointments as scheduled Take your immunizations and boosters as scheduled If your symptoms worsen call your PCP, if no PCP go to Urgent Care Center or Emergency Room Smoking is Dangerous to Your Health. Avoid second hand smoke Call the 24-hour crisis hotline for domestic abuse at Kate Weeks MD R1 Jun 29, 2017 14:50
[2017-06-29] MEDS ORDERED: SENN1TAB PO (14:51)
[2017-06-29] MEDS ORDERED: IBUP-232 PO (14:51)
[2017-06-29] MEDS ORDERED: OXYC1TAB63 PO (14:53)
[2017-06-29] MEDS ORDERED: FERR325C PO (14:55)
== END 2017-06-29 19:12 | disposition home or self-care (01) | DRG 766 ==
LOC: HOBED 11:09 → H2EB 13:31 → H1EA 16:15
PROVIDERS: ADMIT Obstetrics & Gynecology; ATTEND Obstetrics & Gynecology
PROC: 10D00Z1 Extraction of Products of Conception, Low, Open Approach (ICD-10-PCS; principal; 2017-06-27)
PROC: 30253N1 (ICD-10-PCS; 2017-06-27)
DX: O32.8XX0 Maternal care for other malpresentation of fetus, not applicable or unspecified (principal); D64.9 Anemia, unspecified; O99.02 Anemia complicating childbirth; Z37.0 Single live birth; Z3A.38 38 weeks gestation of pregnancy
CPT/HCPCS: 36430; 59025; 76815; 81001; 84112; 85014; 85018; 85025; 86850; 86900; 86901; 86920; 90715; J0690; J1885; J2274; J2370; J2405; J2590; J7120; P9016; Q0163